=== PATIENT | female | born 1985 | race Caucasian/White ===

== ENCOUNTER 2019-03-24 16:51 | Emergency (ER) | payer OTHER ==
[~2019-03-24] VITALS: Ht 162.6 cm; Wt 46.7 kg
[2019-03-24 18:24] LABS: ABSOLUTE NEUTROPHILS 14.6 thou/uL (1.4-8.2); BASOPHILS 0.4 % (0.0-2.0); EOSINOPHILS 0.2 % (0.0-3.0); HEMOGLOBIN 17.4 gm/dL (12.0-15.0); LYMPHOCYTES 6.1 % (24.0-44.0); MCH 32.2 pg (26.0-34.0); MCHC 34.8 g/dL (28.0-37.0); MCV 92.6 fL (80.0-100.0); MONOCYTES 4.7 % (1.0-8.0); POLYS 88.6 % (36.0-66.0); RDW 13.6 % (10.5-14.5); WBC 16.5 thou/uL (4.0-11.0)
[2019-03-24 18:32] LABS: CALCIUM 10.6 mg/dL (8.5-10.1); CREATININE 0.9 mg/dL (0.6-1.0); POTASSIUM 3.8 mmol/L (3.5-5.1)
[2019-03-24 18:39] LABS: ALBUMIN 4.9 g/dL (3.4-5.0); DIRECT BILIRUBIN 0.2 mg/dL (<0.1-0.3); TOTAL BILIRUBIN 1.6 mg/dL (<0.1-1.0); TOTAL PROTEIN 9.4 g/dL (6.4-8.2)
[2019-03-24 19:06] LABS: PLATELET COUNT 309 thou/uL (150-400)
[2019-03-24 19:40] LABS: URINE BILIRUBIN NEGATIVE (Negative); URINE BLOOD TRACE (Negative); URINE CLARITY CLEAR; URINE COLOR YELLOW; URINE GLUCOSE-RANDOM* NEGATIVE (Negative); URINE KETONES 3+ (Negative); URINE LEUKOCYTES NEGATIVE (Negative); URINE NITRITE NEGATIVE (Negative); URINE PROTEIN (DIPSTICK) TRACE (Negative); URINE SPECIFIC GRAVITY <= 1.005 (1.005-1.035)
[2019-03-24] MEDS ORDERED: REGLAN 10 MG TA10 MG PO (20:57)
[2019-03-24] MEDS ORDERED: OMEPRAZOLE40 MG PO (20:57)
[2019-03-24] MEDS ORDERED: CARAFATE 1 GM TA1 G1 PO (20:57)
[2019-03-24 21:10] VITALS: BP 121/83
== END 2019-03-24 21:11 | disposition home or self-care (01) ==
LOC: ER 16:51
PROVIDERS: Nurse Practitioner
DX: R11.2 Nausea with vomiting, unspecified (principal); R10.33 Periumbilical pain; F17.210 Nicotine dependence, cigarettes, uncomplicated; Z98.51 Tubal ligation status; Z90.49 Acquired absence of other specified parts of digestive tract